=== PATIENT | female | born 1990 ===

== ENCOUNTER 2017-02-15 09:17 | Outpatient (CLI) | payer BC, OTHER ==
--- NOTE | 2017-02-15 13:26 | Diagnostic Imaging Report ---
FLOYD CLARK [facility] [id number] [facility] [address] [id number] Report Submission Date: Feb 15, 2017 9:45:54 AM CDT Patient Study Name: ZHAO VERGARA Date: Feb 15, 2017 9:27:30 AM CDT Modality Type: CR Gender: F Description: LOWER EXTREMITY : 89 Institution: [facility] Physician: FLOYD CLARK Examination: Plain film ankle History: Ankle discomfort. Findings: 3 views of the ankle demonstrates normal cortical margins. No fracture or dislocation. Talar dome is intact. Calcaneal spurs. No soft tissue swelling. No joint effusion. Impression: No acute osseous process. Electronically signed on Feb 15, 2017 9:45:54 AM CDT by: Abhishek JEFFERY
== END 2017-02-15 09:20 ==
LOC: RAD 09:17
PROVIDERS: ATTEND Family Medicine
DX: M25.571 Pain in right ankle and joints of right foot (principal)
CPT/HCPCS: 73610